=== PATIENT | female | born 1970 | race Caucasian/White ===

== ENCOUNTER → 2016-11-11 | Outpatient (CLI) | payer BC | LOC: RAD 08:05 | PROVIDERS: ATTEND Surgery | DX: R10.9 Unspecified abdominal pain (principal) | CPT/HCPCS: 74177; 82565 ==

== ENCOUNTER 2016-12-21 07:48 | Day surgery (SDC) | payer BC ==
[~2016-12-21 07:48] MED LIST: PROPOFOL INJ 200 MG/20 ML VIAL IV ONE
[2016-12-21] MEDS ORDERED: NA PHOS,M-B/NA PHOS,DI-BA (ADULT) 133 ML ENEMA PR ONE (08:06)
--- NOTE | 2016-12-21 08:49 | Operative Report ---
Operative Report DATE OF SURGERY: 12/21/16 Operative Report: The risks, benefits and alternatives of the procedure including risks of bleeding, perforation requiring surgery are explained to the patient detail informed consents obtained. Patient is placed in the left lateral decubital position. Timeout is called. Propofol medications administered. A rectal examination was done which did not reveal any masses tears or fissures. An Olympus video scope was inserted into the patient's rectum the scope was then carefully advanced all the way to the cecum cecum was identified by the usual anatomical landmarks of the ileocecal valve as well as the appendiceal office. Prep is good. Documentation is obtained. The scope was then sequentially pulled out via the rest segments of the colon including the ascending colon, hepatic flexure, answers colon, splenic flexure, descending colon and finally into the rectosigmoid portions of the colon. Retroflexion maneuvers performed. PREOPERATIVE DIAGNOSIS: Personal history of polyps. Change of bowel habits POSTOPERATIVE DIAGNOSIS: Small sessile rectal polyp status post biopsy for removal OPERATION: Colonoscopy with biopsy SURGEON: DIAMOND PAREDES ANESTHESIA: LMAC TISSUE REMOVED OR ALTERED: Polyp retrieved COMPLICATIONS: None. ESTIMATED BLOOD LOSS: none. INTRAOPERATIVE FINDINGS: Described above. No masses, AVMs, diverticulosis is noted PROCEDURE: Patient tolerated procedure well. No immediate postprocedure complications are noted. Patient is discharged in good condition. Discharge date 12/21/2016. Discharge diet: Regular. Discharge activity: Regular. 3-5 years surveillance for next colonoscopy Patient is instructed to call the office or proceed to the emergency room should there be any further problems or questions. 2-3 week follow-up to discuss findings.
[2016-12-21 09:20] VITALS: BP 140/82
== END 2016-12-21 09:18 | disposition home or self-care (01) ==
LOC: END 07:48
PROVIDERS: ATTEND Internal Medicine Gastroenterology
PROC: 0DBP8ZX Excision of Rectum, Via Natural or Artificial Opening Endoscopic, Diagnostic (ICD-10-PCS; principal; 2016-12-21 09:00)
DX: K62.1 Rectal polyp (principal); I10 Essential (primary) hypertension; Z79.899 Other long term (current) drug therapy; Z79.82 Long term (current) use of aspirin
CPT/HCPCS: 45380; 88305 ×2; J3490; J2704

== ENCOUNTER → 2017-01-13 | Outpatient (CLI) | payer BC | LOC: OD 16:15 | PROVIDERS: ATTEND Family Medicine | DX: M79.641 Pain in right hand (principal) ==

== ENCOUNTER 2019-07-19 14:33 | Emergency (ER) | payer BC, OTHER ==
--- NOTE | 2019-07-19 14:55 | ER Document Report ---
ED Medical Screen (RME) - General Chief Complaint: Low Back Pain Stated Complaint: RIGHT LOWER BACK PAIN Time Seen by Provider: 07/19/19 14:49 Primary Care Provider: JOSLYN EUGENE DO [Primary Care Provider] - Follow up as needed Mode of Arrival: Wheelchair Information source: Patient Notes: 48-year-old female with history of cardiac disease and chronic back pain pr esents emergency department with right-sided back pain. Reports started yesterday. Denies trauma. Denies fever vomiting diarrhea. Denies urinary bowel incontinence or retention. Patient is under pain management who has a fentanyl patch on and takes Percocet for breakthrough pain. She reports she contacted her pain management and and was directed to come here for her pain. I have greeted and performed a rapid initial assessment of this patient. A comprehensive ED assessment and evaluation of the patient, analysis of test results and completion of the medical decision making process will be conducted by additional ED providers. Dictation of this chart was performed using voice recognition software; therefore, there may be some unintended grammatical errors. TRAVEL OUTSIDE OF THE [place] IN LAST 30 DAYS: No - Related Data Allergies/Adverse Reactions: tramadol HCl [From Ultram] Allergy (Mild, Verified 12/21/16 07:41) MEDICATION INTERACTION ofloxacin [From Floxin] Allergy (Verified 12/21/16 07:41) Hives Past Medical History - Past Medical History Cardiac Medical History: Reports: Hx Coronary Artery Disease, Hx Heart Attack - OCT 14, 2015, Hx Hypercholesterolemia - On no medication, Hx Hypertension - On medication Pulmonary Medical History: Denies: Hx Asthma, Hx Bronchitis, Hx COPD, Hx Pneumonia, Hx Tuberculosis Neurological Medical History: Reports: Hx Migraine. Denies: Hx Cerebrovascular Accident, Hx Seizures Endocrine Medical History: Denies: Hx Diabetes Mellitus Type 1, Hx Diabetes Mellitus Type 2 GI Medical History: Reports: Hx Gastroesophageal Reflux Disease, Hx Irritable Bowel Musculoskeltal Medical History: Reports Hx Arthritis Psychiatric Medical History: Reports: Hx Anxiety, Hx Bipolar Disorder - Bipolar 1, Hx Depression Past Surgical History: Reports: Hx Abdominal Surgery - 3 laparoscopic surgeries for endometriosis, Hx Appendectomy - 1983. Denies: Hx Pacemaker - Immunizations Hx Diphtheria, Pertussis, Tetanus Vaccination: Yes Physical Exam - Vital signs Vitals: Temp Pulse Resp BP Pulse Ox 98.2 F 65 18 106/70 97 07/19/19 14:40 07/19/19 14:40 07/19/19 14:40 07/19/19 14:40 07/19/19 14:40 Course - Vital Signs Vital signs: Temp Pulse Resp BP Pulse Ox 98.2 F 65 18 106/70 97 07/19/19 14:40 07/19/19 14:40 07/19/19 14:40 07/19/19 14:40 07/19/19 14:40 Doctor's Discharge - Discharge Referrals: JOSLYN EUGENE DO [Primary Care Provider] - Follow up as needed
[2019-07-19 15:29] LABS: APPEARANCE,URINE SLIGHTLY-CLOUDY; BILIRUBIN,URINE NEGATIVE (NEGATIVE); COLOR,URINE YELLOW; GLUCOSE, URINE NEGATIVE (NEGATIVE); KETONES,URINE TRACE mg/dL (NEGATIVE); LEUKOCYTE ESTERASE,URINE NEGATIVE (NEGATIVE); NITRITE,URINE NEGATIVE (NEGATIVE); PROTEIN,URINE NEGATIVE (NEGATIVE); URINE SPECIFIC GRAVITY 1.019
[2019-07-19] MEDS ORDERED: KETOROLAC TROMETHAMINE INJ/PF 30 MG/1 ML SDV IM ONE (17:14)
[2019-07-19] MEDS ORDERED: LIDOCAINE 5% (700 MG) TRANSDERMAL ADH..PATCH TP ONE (17:14)
[2019-07-19] MEDS ORDERED: DEXAMETHASONE SOD PHOS INJ 10 MG/1 ML VIAL IM ONE (17:14)
--- NOTE | 2019-07-19 17:20 | ER Document Report ---
HPI - HPI Time Seen by Provider: 07/19/19 14:49 Pain Level: 5 Notes: Patient is a 48-year-old female with history of chronic back pain and under the care of pain management who presents complaining of right upper buttock/right lower back pain over the past 1 to 2 days without obvious injury. Patient states that bending twisting of the trunk make the pain worse. Pain will occasionally radiate down the right buttock into the right lower leg and up the right paraspinal area to the thoracic spine. She is eating and drinking without any difficulties. She is urinating normally and having normal bowel movements. She has not had any injections or procedures to her lower back. Denies any IV drug abuse. No other concerns or complaints. Patient is currently on a 12.5 fentanyl patch as well as 5 mg oxycodone for breakthrough pain. She was directed by her pain management clinic to come here for her acute pain. Denies any headache, fever, URI, sore throat, chest pain, palpitations, syncope, cough, shortness of breath, wheeze, dyspnea, abdominal pain, nausea/vomiting/diarrhea, urinary retention, dysuria, hematuria, loss of control of bowel or bladder, numbness/tingling, saddle anesthesia, muscle paralysis/weakness, or rash. - ROS Systems Reviewed and Negative: Yes All other systems reviewed and negative - REPRODUCTIVE Reproductive: DENIES: : Past Medical History - General Information source: Patient - Social History Smoking Status: Current Every Day Smoker Family History: Reviewed & Not Pertinent Patient has suicidal ideation: No Patient has homicidal ideation: No - Past Medical History Cardiac Medical History: Reports: Hx Coronary Artery Disease, Hx Heart Attack - Sep, Hx Hypercholesterolemia, Hx Hypertension Pulmonary Medical History: Denies: Hx Asthma, Hx Bronchitis, Hx COPD, Hx Pneumonia, Hx Tuberculosis Neurological Medical History: Reports: Hx Migraine. Denies: Hx Cerebrovascular Accident, Hx Seizures Endocrine Medical History: Denies: Hx Diabetes Mellitus Type 1, Hx Diabetes Mellitus Type 2 GI Medical History: Reports: Hx Gastroesophageal Reflux Disease, Hx Irritable Bowel Musculoskeletal Medical History: Reports Hx Arthritis Psychiatric Medical History: Reports: Hx Anxiety, Hx Bipolar Disorder - Bipolar 1, Hx Depression Past Surgical History: Reports: Hx Abdominal Surgery - 3 laparoscopic surgeries for endometriosis, Hx Appendectomy - 1983, Hx Orthopedic Surgery - Right knee surgery 2005,2006, Elbow surgery 2008. Denies: Hx Pacemaker - Immunizations Hx Diphtheria, Pertussis, Tetanus Vaccination: Yes Vertical Provider Document - CONSTITUTIONAL Agree With Documented VS: Yes Notes: PHYSICAL EXAMINATION: GENERAL: Well-appearing, well-nourished and in no acute distress. LUNGS: Breath sounds clear to auscultation bilaterally and equal. No wheezes rales or rhonchi. HEART: Regular rate and rhythm without murmurs, rubs, gallops. ABDOMEN: Soft, nontender, nondistended abdomen. No guarding, no rebound. No masses appreciated. Normal bowel sounds present. No CVA tenderness bilaterally. No pulsatile mass Musculoskeletal: LE's b/l: FROM to passive/active. Strength 5+/5. No deficits noted. No bony tenderness of extremities. Back: FROM to passive/active. Strength 5+/5. No vertebral point tenderness, stepoffs, or deformities. No other bony tenderness, erythema, swelling, or ecchymosis. SLR negative b/l. + reproducible tenderness to the Rt L-paraspinal mm with noted trigger point and mild spasming. + rt SI jt tenderness. No foot drop Extremities: No cyanosis, clubbing, or edema b/l. Peripheral pulses 2+. Capillary refill less than 2 seconds. NEUROLOGICAL: Normal speech, normal gait. Normal sensory, motor exams. Reflexes 2+ b/l. PSYCH: Normal mood, normal affect. SKIN: Warm, Dry, normal turgor, no rashes or lesions noted. - INFECTION CONTROL TRAVEL OUTSIDE OF THE [place] IN LAST 30 DAYS: No Course - Re-evaluation Re-evalutation: 07/19/19 17:18 Patient is an afebrile, well-hydrated, 48-year-old female who presents to the ED with acute on chronic low back pain and Rt sacroiliitis. Vitals are acceptable. PE is otherwise unremarkable for any focal neurological deficits. UA unremarkable. Patient was given Toradol, decadron, & Lidoderm patch. She has no significant tachycardia, tachypnea, or hypoxia. She is nontoxic-appearing and is tolerating p.o. without difficulties. There are no signs of infection. No other red flag symptoms noted. No other labs or imaging warranted at this time based on H&P. Low suspicion for any meningitis, fracture, expanding/ruptured AAA, cauda equina syndrome, epidural mass lesion/abscess, herniated disc causing severe spinal stenosis, or other systemic infection at this time. Patient is aware that this condition can change from initial presentation and that she needs monitor symptoms closely for any acute changes. I will send her home with a prescription for robaxen and lidoderm patch. Conservative measures otherwise for symptoms. Recheck with your PCM in 3-5 days. Consider consult with orthopedic/physical therapy. Return to the ED with any worsening/concerning symptoms otherwise as reviewed discharge. Patient is in agreement. - Vital Signs Vital signs: Temp Pulse Resp BP Pulse Ox 98.2 F 65 18 106/70 97 07/19/19 14:40 07/19/19 14:40 07/19/19 14:40 07/19/19 14:40 07/19/19 14:40 - Laboratory Laboratory results interpreted by me: 07/19/19 14:58 Urine Ketones TRACE H Urine Urobilinogen 2.0 H Discharge - Discharge Clinical Impression: Acute exacerbation of chronic low back pain Condition: Stable Disposition: HOME, SELF-CARE Instructions: Low Back Pain ([facility]), Muscle Relaxers ([facility]) Additional Instructions: Only use the muscle relaxer when you are not going to be operating any heavy machinery and in your case preferably during the day due to the use of narcotics. Do not use if you are going to take your breakthrough pain medication. Rest, Ice Tylenol/ibuprofen as needed Light stretches daily Strength exercises as able Moist heat and massage may help F/u with your PCP in 3-5 days for a recheck Consider consult(s) with Orthopedics/physical therapy for ongoing/worsening symptoms Return to the ED with any worsening symptoms and/or development of fever, headache, chest pain, palpitations, syncope, shortness of breath, trouble breathing, abdominal pain, n/v/d, blood in stool/urine, loss of control of bowel/bladder, urinary retention, muscle weakness/paralysis, saddle anesthesia, numbness/tingling, or other worsening symptoms that are concerning to you. Prescriptions: Lidocaine [Lidoderm 5% (700 mg) Transdermal Patch] 1 patch TP DAILY #10 adh..patch Methocarbamol [Robaxin 500 mg Tablet] 500 mg PO DAILY #10 tablet Forms: Smoking Cessation Education Referrals: JOSLYN EUGENE DO [NO LOCAL MD] - Follow up in 3-5 days [facility] [Provider Group] - Follow up as needed
[2019-07-19 17:42] VITALS: BP 107/88
== END 2019-07-19 17:42 | disposition home or self-care (01) ==
LOC: ER 14:33
DX: M54.5 Low back pain (principal); G89.29 Other chronic pain; M54.9 Dorsalgia, unspecified; X50.1XXA Overexertion from prolonged static or awkward postures, initial encounter; Z79.899 Other long term (current) drug therapy; F17.200 Nicotine dependence, unspecified, uncomplicated; I25.10 Atherosclerotic heart disease of native coronary artery without angina pectoris; I25.2 Old myocardial infarction; I10 Essential (primary) hypertension
CPT/HCPCS: 99283; 96374; 96375; 81001; J1885; J1100

== ENCOUNTER 2019-11-29 00:38 | Emergency (ER) | payer SELFPAY ==
--- NOTE | 2019-11-29 01:22 | ER Document Report ---
ED General - General Chief Complaint: Chest Pain Stated Complaint: CHEST PAIN Time Seen by Provider: 11/29/19 01:20 Primary Care Provider: DAVID,JUAN CARLOS [Primary Care Provider] - Follow up as needed Mode of Arrival: Ambulatory Information source: Patient TRAVEL OUTSIDE OF THE [place] IN LAST 30 DAYS: No - HPI Onset: Just prior to arrival Onset/Duration: Sudden Quality of pain: Pressure, Sharp Severity: Moderate Pain Level: 2 Associated symptoms: None Exacerbated by: Denies Relieved by: Denies Similar symptoms previously: No Recently seen / treated by doctor: No Notes: 49 year old female smoker with a history of CAD s/p stent, HTN, HLD here for sudden onset of chest pain which started around midnight when she was trying to go to bed. The patient says the chest pain only lasted a couple seconds but she became very anxious and that made her feel worse. The patient had some mild shortness of breath during the chest pain episode. The patient says this pain did not feel like when she had a heart attack in 2014. - Related Data Allergies/Adverse Reactions: tramadol HCl [From Ultram] Allergy (Mild, Verified 12/21/16 07:41) MEDICATION INTERACTION ofloxacin [From Floxin] Allergy (Verified 12/21/16 07:41) Hives Past Medical History - General Information source: Patient - Social History Smoking Status: Current Every Day Smoker Frequency of alcohol use: None Drug Abuse: None Lives with: Family Family History: Reviewed & Not Pertinent Patient has suicidal ideation: No Patient has homicidal ideation: No - Past Medical History Cardiac Medical History: Reports: Hx Coronary Artery Disease, Hx Heart Attack - OCT 14, 2015, Hx Hypercholesterolemia, Hx Hypertension Pulmonary Medical History: Denies: Hx Asthma, Hx Bronchitis, Hx COPD, Hx Pneumonia, Hx Tuberculosis Neurological Medical History: Reports: Hx Migraine. Denies: Hx Cerebrovascular Accident, Hx Seizures Endocrine Medical History: Denies: Hx Diabetes Mellitus Type 1, Hx Diabetes Mellitus Type 2 GI Medical History: Reports: Hx Gastroesophageal Reflux Disease, Hx Irritable Bowel Musculoskeletal Medical History: Reports Hx Arthritis Psychiatric Medical History: Reports: Hx Anxiety, Hx Bipolar Disorder - Bipolar 1, Hx Depression Past Surgical History: Reports: Hx Abdominal Surgery - 3 laparoscopic surgeries for endometriosis, Hx Appendectomy - 1983, Hx Orthopedic Surgery - Right knee surgery 2005,2006, Elbow surgery 2008. Denies: Hx Pacemaker - Immunizations Hx Diphtheria, Pertussis, Tetanus Vaccination: Yes Review of Systems - Review of Systems Constitutional: No symptoms reported EENT: No symptoms reported Cardiovascular: Chest pain Respiratory: No symptoms reported Gastrointestinal: No symptoms reported Genitourinary: No symptoms reported Female Genitourinary: No symptoms reported Musculoskeletal: No symptoms reported Skin: No symptoms reported Hematologic/Lymphatic: No symptoms reported Neurological/Psychological: Anxiety -: Yes All other systems reviewed and negative Physical Exam - Notes Notes: GENERAL: Well-appearing, well-nourished and in no acute distress. HEAD: Atraumatic, normocephalic. EYES: Pupils equal round and reactive to light, extraocular movements intact, sclera anicteric, conjunctiva are normal. ENT: TMs normal, nares patent, oropharynx clear without exudates. Moist mucous membranes. NECK: Normal range of motion, supple without lymphadenopathy or JVD. LUNGS: Breath sounds clear to auscultation bilaterally and equal. No wheezes rales or rhonchi. HEART: Regular rate and rhythm without murmurs, rubs or gallops. ABDOMEN: Soft, nontender, normoactive bowel sounds. No guarding, no rebound. No masses appreciated. EXTREMITIES: Normal range of motion, no pitting or edema. No clubbing or cyanosis. NEUROLOGICAL: Cranial nerves II through XII grossly intact. Normal speech, normal gait. PSYCH: Normal mood, normal affect. SKIN: Warm, Dry, normal turgor, no rashes or lesions noted. Course - Re-evaluation Re-evalutation: 11/29/19 01:33 The patient had an EKG in the ER which was unchanged from priors. Her story sounds more like anxiety then ACS related chest pain. That being said, I ordered a work up including Troponin and Chest Xray but the patient refused to stay and she signed out AMA. The patient told me she would follow up with her Project Engineering Director. - EKG Interpretation by Me EKG shows normal: Sinus rhythm, [place], Intervals, QRS Complexes Rate: Normal Rhythm: NSR When compared to previous EKG there are: No significant change Additional EKG results interpreted by me: 11/29/19 01:25 T wave inversions in III, aVR, aVF, V1-V4 Discharge - Discharge Clinical Impression: Anxiety Chest pain Qualifiers: Chest pain type: unspecified Qualified Code(s): R07.9 - Chest pain, unspecified Condition: Stable Disposition: AGAINST MEDICAL ADVICE [facility] [[facility]] - Follow up as needed
--- NOTE | 2019-11-29 07:59 | EKG REPORT ---
SEVERITY:- BORDERLINE ECG - SINUS RHYTHM BORDERLINE T ABNORMALITIES, ANTERIOR LEADS : Confirmed by: Mita Dobson MD 29-Nov-2019 07:59:07
== END 2019-11-29 01:35 | disposition left against medical advice (07) ==
LOC: ER 00:38
DX: R07.9 Chest pain, unspecified (principal); F41.9 Anxiety disorder, unspecified; R06.02 Shortness of breath; Z88.8 Allergy status to other drugs, medicaments and biological substances; I10 Essential (primary) hypertension; I25.10 Atherosclerotic heart disease of native coronary artery without angina pectoris; I25.2 Old myocardial infarction; F17.200 Nicotine dependence, unspecified, uncomplicated
CPT/HCPCS: 93005; 93010; 99284